=== PATIENT | female | born 1955 | race Hispanic/Latino ===

== ENCOUNTER 2018-08-14 15:04 | Emergency (ER) | payer OTHER, MEDICAID ==
[2018-08-14 15:13] VITALS: O2SAT 98
--- NOTE | 2018-08-14 16:10 | ED PDOC ---
HPI: Chest Pain Time Seen by Provider: 08/14/18 15:16 Chief Complaint (Nursing): Chest Pain Chief Complaint (Provider): chest pain History Per: Patient History/Exam Limitations: no limitations Onset/Duration Of Symptoms: Days (1x) Current Symptoms Are (Timing): Better Severity: Moderate Additional Complaint(s): 62 year old female with no pertinent past medical history presents to the ED for an evaluation of chest pain that work her up in the middle of the night. Patient also states that she had a similar pain 4x years ago with a full cardiac workup which was negative at the time. Patient denies smoking, states that she typically eats a healthy diet. Patient states that her father had 11x heart attacks throughout his life (first one at 51 years), and her mother's side of the family is healthy. Patient states that she has been under a lot of stress recently, as she has been unemployed for the past 1x year and has ran out of her savings. Patient reports taking 4x baby aspirin this morning and has had an improvement in pain within the last hour. PMD: None provided. Past Medical History Reviewed: Historical Data, Nursing Documentation, Vital Signs Vital Signs: Last Vital Signs Temp 98.2 F 08/14/18 15:12 Pulse 70 08/14/18 15:12 Resp 18 08/14/18 15:12 BP 125/74 08/14/18 15:12 Pulse Ox 98 08/14/18 15:12 ZOEY Report Viewed: Yes Primary Care Provider: FAMILY PROVIDER,NO - Medical History PMH: No Chronic Diseases - Surgical History Surgical History: Tonsillectomy - Family History Family History: States: [place] (father: 11 heart attacks throughout life, first one at 51 years.) - Social History Current smoker - smoking cessation education provided: No Alcohol: None Drugs: Denies - Allergies Allergies/Adverse Reactions: Allergies Allergy/AdvReac Type Severity Reaction Status Date / Time No Known Allergies Allergy Verified 08/14/18 15:08 Review of Systems ROS Statement: Except As Marked, All Systems Reviewed And Found Negative Cardiovascular: Positive for: Chest Pain Physical Exam - Reviewed Nursing Documentation Reviewed: Yes Vital Signs Reviewed: Yes - Physical Exam Appears: Positive for: Well, Non-toxic, No Acute Distress Head Exam: Positive for: ATRAUMATIC, NORMOCEPHALIC Skin: Positive for: Normal Color, Warm, Dry Cardiovascular/Chest: Positive for: Regular Rate, Rhythm, Chest Non Tender. Negative for: Edema, Gallop, Murmur Respiratory: Positive for: Normal Breath Sounds Neurological/Psych: Positive for: Awake, Alert, Oriented (3x) - Laboratory Results Result Diagrams: 08/14/18 16:40 08/14/18 16:40 - ECG O2 Sat by Pulse Oximetry: 98 (RA) Pulse Ox Interpretation: Normal Medical Decision Making Medical Decision Makin:16 Initial impression: 62 year old female with chest pain. Workup for acute onset chest pain. Vitals within normal limits Initial plan: * troponin I * XRay chest 2 views * EKG * reevaluation 17:20 troponin I: negative heart score: 3 low risk for MACE Upon provider reevaluation patient reports that her symptoms have resolved, is medically stable, and requires no further treatment in the ED at this time. Patient will be discharged home. Counseling was provided and all questions were answered regarding diagnosis and need for follow up with out patient clinic. There is agreement to discharge plan. Return if symptoms persist or worsen. ----- Scribe Attestation: Documented by Merced Beck, acting as a scribe for Merced Berger MD. Provider Scribe Attestation: All medical record entries made by the Scribe were at my direction and pers onally dictated by me. I have reviewed the chart and agree that the record accurately reflects my personal performance of the history, physical exam, medical decision making, and the department course for this patient. I have also personally directed, reviewed, and agree with the discharge instructions and disposition. Disposition - Clinical Impression Clinical Impression: Chest pain, Atypical chest pain - Disposition Referrals: [facility] [Outside] Disposition Time: 17:20 Condition: IMPROVED Instructions: Chest Pain That Is Not Caused by the Heart (DC), Heart Disease in Women (DC) Forms: [employer] (Danish) Print Language: SAMOAN
--- NOTE | 2018-08-14 16:31 | RAD ---
Date of service: 08/14/2018 HISTORY: cough COMPARISON: No prior. TECHNIQUE: Chest PA and lateral views FINDINGS: LUNGS: No active pulmonary disease. PLEURA: No significant pleural effusion identified. No pneumothorax apparent. Minor left apical pleural thickening CARDIOVASCULAR: No aortic atherosclerotic calcification present. Normal cardiac size. No pulmonary vascular congestion. OSSEOUS STRUCTURES: No significant abnormalities. VISUALIZED UPPER ABDOMEN: Normal. OTHER FINDINGS: None. IMPRESSION: No active disease.
[2018-08-14 16:47] LABS: BASO % 0.6 % (0.0-2.0); EOS # 0.1 K/uL (0.0-0.7); EOS % 1.9 % (0.0-4.0); HEMOGLOBIN 14.5 g/dL (12.0-16.0); LYMPH # 1.8 K/uL (1.0-4.3); LYMPH % 36.2 % (20.0-40.0); MEAN CELL VOLUME 93.6 fl (81.0-99.0); MEAN CORPUSCULAR HEMOGLOBIN 30.7 pg (27.0-31.0); MEAN CORPUSCULAR HGB CONC 32.8 g/dL (33.0-37.0); MEAN PLATELET VOLUME 11.4 fl (7.2-11.7); MONO # 0.4 K/uL (0.0-0.8); MONO % 8.3 % (0.0-10.0); NEUT # 2.6 K/uL (1.8-7.0); NRBC % 0.1 % (0.0-0.0); RBC 4.72 Mil/uL (3.80-5.20); WHITE BLOOD COUNT 4.9 K/uL (4.8-10.8)
[2018-08-14 16:55] LABS: BLOOD UREA NITROGEN 15 mg/dl (7-17); CALCIUM 10.4 mg/dL (8.4-10.2); GFR NON-AFRICAN AMERICAN > 60
[2018-08-14 17:35] VITALS: BP 120/78; PULSE 78; RESP 19; TEMP 97.6
== END 2018-08-14 17:36 | disposition home or self-care (01) ==
LOC: H.ER 15:04
DX: R07.89 Other chest pain (principal)